=== PATIENT | male | born 1960 | race Caucasian/White ===

== ENCOUNTER 2017-06-20 14:42 | Emergency (ER) | payer BC ==
[2017-06-20 15:55] LABS: BASOPHILS 0 % (0-2); EOSINOPHILS 0 % (0-7); HEMATOCRIT 43.5 % (42.0-54.0); HEMOGLOBIN 14.9 g/dL (13.5-17.5); IMMATURE GRANULOCYTES 0.2 % (0-5); LYMPHOCYTES 7.7 % (15-50); MCH 30.7 pg (26.0-34.0); MCHC 34.3 g/dL (31.0-37.0); MCV 89.5 fL (80.0-100.0); MEAN PLATELET VOLUME 8.9 fL (7.4-10.4); MONOCYTES 7.8 % (2-11); NEUTROPHILS 84.3 % (40-80); PLATELET COUNT 173 10x3/uL (130-400); RBC 4.86 10x6/uL (4.20-6.10); RDW 12.1 % (11.5-14.5); WBC 8.2 10x3/uL (4.8-10.8)
[2017-06-20 16:16] LABS: ALBUMIN 3.3 g/dL (3.4-5.0); ANION GAP 11.8 mmol/L (8-16); BILIRUBIN - TOTAL 0.62 mg/dL (0.2-1.3); CALCIUM 8.5 mg/dL (8.5-10.1); CREATININE - SERUM 1.1 mg/dL (0.6-1.3); POTASSIUM - SERUM 3.8 mmol/L (3.5-5.1); PROTEIN - SERUM 7.2 g/dL (6.4-8.2)
[2017-06-20 16:18] LABS: HELICOBACTER PYLORI IGG POSITIVE (NEGATIVE)
== END 2017-06-20 17:56 | disposition home or self-care (01) ==
LOC: D.ER 14:42
PROVIDERS: Emergency Medicine; Physician Assistant Medical
DX: B96.81 Helicobacter pylori [H. pylori] as the cause of diseases classified elsewhere (principal); I10 Essential (primary) hypertension